=== PATIENT | female | born 1945 | race Caucasian/White ===

== ENCOUNTER 2019-10-10 01:11 | Observation (INO) | payer MEDICAID, MEDICARE, OTHER ==
[~2019-10-10] VITALS: Ht 149.9 cm; Wt 65.2 kg
[2019-10-10] MEDS ORDERED: ONDANSETRON 2MG/ML, 2ML ONE ×2 (01:20→03:29)
[2019-10-10] MEDS ORDERED: PLEASE ENTER ALLERGIES MC SCH (01:30)
[2019-10-10] MEDS ORDERED: ONDANSETRON 2MG/ML, 2ML IVPush ONE (01:30)
[2019-10-10] MEDS ORDERED: FENTANYL PF 100 MCG/2ML IV ONE (01:30)
[2019-10-10 01:44] LABS: BASOPHILS # (AUTO) 0.02 x10^3/uL (0-0.1); BASOPHILS % (AUTO) 0 % (0-1); EOSINOPHILS # (AUTO) 0.01 x10^3/uL (0-0.4); EOSINOPHILS % (AUTO) 0 % (1-7); LYMPHOCYTES # (AUTO) 1.52 x10^3/uL (1-3.4); LYMPHOCYTES % (AUTO) 10 % (22-44); MD NO; MEAN CORPUSCULAR HEMOGLOBIN 29.4 pg (27.0-34.8); MEAN CORPUSCULAR HGB CONC 33.7 g/dL (32.4-35.8); MEAN CORPUSCULAR VOLUME 87.2 fL (80-100); MEAN PLATELET VOLUME 7.4 fL (7.4-10.4); MONOCYTES # (AUTO) 0.69 x10^3/uL (0.2-0.8); MONOCYTES % (AUTO) 5 % (2-9); NEUTROPHILS # (AUTO) 12.59 x10^3/uL (1.8-6.8); NEUTROPHILS % (AUTO) 85 % (42-75); PLATELET COUNT 373 x10^3/uL (130-400); RED BLOOD COUNT 5.38 x10^6/uL (3.82-5.3); RED CELL DISTRIBUTION WIDTH 12.9 % (9.6-15.2)
[2019-10-10 01:52] LABS: ALANINE AMINOTRANSFERASE 29 U/L (12-78); ALBUMIN 3.9 g/dL (3.4-5.0); ANION GAP 9 mmol/L (5-15); CALCIUM 8.9 mg/dL (8.5-10.1); CHLORIDE 93 mmol/L (98-107); CREATININE 0.69 mg/dL (0.55-1.02)
[2019-10-10 01:54] LABS: ALKALINE PHOSPHATASE 79 U/L (45-117); TOTAL PROTEIN 7.9 g/dL (6.4-8.2)
[2019-10-10 02:12] LABS: MICROSCOPIC AUTO
[2019-10-10] MEDS ORDERED: FENTANYL PF 100 MCG/2ML ONE (02:15)
[2019-10-10 02:21] LABS: CULTURE INDICATED? NO
[2019-10-10] MEDS ORDERED: OMNIPAQUE 350 MG/ML, 100ML BOTTLE ONE (02:25)
[2019-10-10] MEDS ORDERED: SODIUM CHLORIDE 0.9% 1,000ML IVBOLUS ONE (02:30)
[2019-10-10] MEDS ORDERED: hydrALAzine 20 MG/ML, 1ML ONE (03:18)
[2019-10-10] MEDS ORDERED: AMLODIPINE 5 MG TABLET ONE (03:18)
[2019-10-10] MEDS ORDERED: hydrALAzine 20 MG/ML, 1ML IV ONE (03:30)
[2019-10-10] MEDS ORDERED: AMLODIPINE 5 MG TABLET PO ONE (03:30)
[2019-10-10 03:59] LABS: CREATININE,URINE RANDOM 16.8 mg/dL
[2019-10-10] MEDS ORDERED: LORazepam 2 MG/ML, 1ML IVPush ONE (05:00)
[2019-10-10] MEDS ORDERED: SODIUM CHLORIDE 0.9% 1,000 ML IV SCH (05:09)
[2019-10-10 05:19] VITALS: BP 160/74
[2019-10-10] MEDS ORDERED: ACETAMINOPHEN 325 MG TABLET PO PRN ×2 (05:30→22:00)
[2019-10-10] MEDS ORDERED: POTASSIUM CHLORIDE 40 MEQ in SODIUM CHLORIDE 0.9% 500 ML IV ONE (05:30)
[2019-10-10] MEDS ORDERED: PROMETHAZINE 25 MG/ML, 1ML IM PRN (05:30)
[2019-10-10] MEDS ORDERED: morphine SULFATE 10 MG/ML, 1ML IVPush PRN (05:30)
[2019-10-10] MEDS ORDERED: LORazepam 2 MG/ML, 1ML IVPush PRN (05:30)
[2019-10-10] MEDS ORDERED: ONDANSETRON 2MG/ML, 2ML IVPush PRN (05:30)
[2019-10-10] MEDS ORDERED: LABETALOL 5MG/ML, 20ML IVPush PRN (05:30)
[2019-10-10] MEDS ORDERED: hydrALAzine 20 MG/ML, 1ML IVPush PRN (05:30)
[2019-10-10] MEDS ORDERED: AMLO5TAB10 PO (05:33)
[2019-10-10 06:34] LABS: OSMOLALITY,URINE 351 mOsm/kg (500-850)
[2019-10-10] MEDS: METHOCARBAMOL 500 MG TABLET PO PRN ×2 (06:37→15:47)
[2019-10-10] MEDS: INSULIN LISPRO 100 UNITS/ML, PEN SQ-INSULIN SCH ×4 (07:00→20:49)
[2019-10-10 07:18] VITALS: BP 177/73
[2019-10-10] MEDS ORDERED: SODIUM PHOSPHATE 30 MMOL in SODIUM CHLORIDE 0.9% 500 ML IV ONE (10:00)
[2019-10-10 10:18] LABS: ANION GAP 10 mmol/L (5-15); CALCIUM 8.5 mg/dL (8.5-10.1); CHLORIDE 95 mmol/L (98-107); CREATININE 0.56 mg/dL (0.55-1.02)
[2019-10-10] MEDS: ENOXAPARIN 40 MG/0.4 ML SQ SCH (11:23)
[2019-10-10 13:00] LABS: RAPID INFLUENZA A Negative (Negative); RAPID INFLUENZA B Negative (Negative)
[2019-10-10 14:04] VITALS: BP 143/67
[2019-10-10] MEDS ORDERED: LIDODERM 5% PATCH TD SCH (17:00)
[2019-10-10 19:21] VITALS: BP 166/76
[2019-10-10] MEDS: NEUTRA PHOS K 250 MG TABLET PO SCH (20:33)
[2019-10-11 00:18] VITALS: BP 184/80
[2019-10-11 01:37] VITALS: BP 172/68
[2019-10-11 05:49] LABS: ANION GAP 10 mmol/L (5-15); CALCIUM 8.9 mg/dL (8.5-10.1); CHLORIDE 101 mmol/L (98-107)
[2019-10-11 06:02] LABS: BASOPHILS # (AUTO) 0.02 x10^3/uL (0-0.1); BASOPHILS % (AUTO) 0 % (0-1); EOSINOPHILS % (AUTO) 1 % (1-7); LYMPHOCYTES # (AUTO) 1.72 x10^3/uL (1-3.4); LYMPHOCYTES % (AUTO) 22 % (22-44); MD NO; MEAN CORPUSCULAR HEMOGLOBIN 29.3 pg (27.0-34.8); MEAN CORPUSCULAR HGB CONC 33.3 g/dL (32.4-35.8); MEAN CORPUSCULAR VOLUME 87.8 fL (80-100); MEAN PLATELET VOLUME 7.6 fL (7.4-10.4); MONOCYTES # (AUTO) 0.86 x10^3/uL (0.2-0.8); MONOCYTES % (AUTO) 11 % (2-9); NEUTROPHILS % (AUTO) 66 % (42-75); PLATELET COUNT 392 x10^3/uL (130-400); RED BLOOD COUNT 5.38 x10^6/uL (3.82-5.3); RED CELL DISTRIBUTION WIDTH 13.5 % (9.6-15.2)
[2019-10-11] MEDS ORDERED: POTASSIUM CHLORIDE 20 MEQ TAB.ER.PRT PO ONE (07:00)
[2019-10-11] MEDS: INSULIN LISPRO 100 UNITS/ML, PEN SQ-INSULIN SCH ×2 (07:00→11:00)
[2019-10-11 07:19] VITALS: BP 166/68
[2019-10-11] MEDS ORDERED: FUROSEMIDE 20 MG TABLET PO SCH (08:00)
[2019-10-11] MEDS ORDERED: SODIUM CHLORIDE 1 GM TABLET PO SCH (08:00)
[2019-10-11] MEDS: NEUTRA PHOS K 250 MG TABLET PO SCH (08:31)
[2019-10-11] MEDS: ENOXAPARIN 40 MG/0.4 ML SQ SCH (08:33)
[2019-10-11] MEDS ORDERED: AMLODIPINE 5 MG TABLET PO SCH ×2 (09:00)
== END 2019-10-11 12:19 | disposition home or self-care (01) ==
LOC: ED 01:50 → EDIP 04:55 → INTOOBSV 04:55 → 3N 05:12
PROVIDERS: ADMIT Family Medicine; ATTEND Hospitalist
DX: E22.2 Syndrome of inappropriate secretion of antidiuretic hormone (principal); R11.2 Nausea with vomiting, unspecified; I16.0 Hypertensive urgency; M54.30 Sciatica, unspecified side; E87.6 Hypokalemia; D72.829 Elevated white blood cell count, unspecified; E11.9 Type 2 diabetes mellitus without complications; R35.8 Other polyuria; R31.29 Other microscopic hematuria; G89.29 Other chronic pain; F41.9 Anxiety disorder, unspecified; I10 Essential (primary) hypertension; Z88.5 Allergy status to narcotic agent; Z90.710 Acquired absence of both cervix and uterus; Z91.81 History of falling; Z79.899 Other long term (current) drug therapy
CPT/HCPCS: 36415; 71045; 74177; 80048; 80053; 81001; 82436; 82570; 82962; 83036; 83690; 83735; 83930; 83935; 84100; 84133; 84300; 84443; 85025; 87400; 93970; 96361; 96365; 96366; 96372; 96375; 96376; 99285; G0378; J0360; J1650; J2405; J3010; J3480; J7030; J7040; Q9967; 96374